=== PATIENT | female | born 1930 | race Caucasian/White ===

== ENCOUNTER → 2016-08-01 | Outpatient (CLI) | payer BC ==
[~2016-08-01] MED LIST: ASPEC81 PO; DYZ PO; EYE DROPS; SYN50 PO
[2016-08-01 17:39] LABS: ALB/GLOB RATIO 1.2 (0.9-2); ALKALINE PHOSPHATASE 92 U/L (45-117); BLOOD UREA NITROGEN 17 mg/dl (7-18); BUN/CREATININE RATIO 20.1 (10-20); CALCIUM 9.3 mg/dl (8.5-10.1); CARBON DIOXIDE 29 mmol/L (21-32); CHLORIDE 104 mmol/L (98-107); CREATININE 0.86 mg/dl (0.60-1.20); GLUCOSE 90 mg/dl (70-99); MAGNESIUM 2.1 mg/dl (1.8-2.4); POTASSIUM 3.6 mmol/L (3.5-5.1); SODIUM 143 mmol/L (136-145)
[2016-08-01 17:44] LABS: ALT/SGPT 27 U/L (12-78); AST/SGOT 21 U/L (15-37); CHOLESTEROL 192 mg/dl (0-200); CHOLESTEROL/HDL RATIO 2.6; HDL CHOLESTEROL 75 mg/dl; LDL CHOLESTEROL CALCULATED 97 mg/dl; THYROID STIMULATING HORMONE 0.694 uIu/ml (0.300-4.500); TRIGLYCERIDES 99 mg/dl (0-150); VERY LOW DENSITY LIPOPROT CALC 20 mg/dl
== END | disposition home or self-care (01) ==
LOC: C.LAB1850 11:44
PROVIDERS: ATTEND Internal Medicine
DX: E83.42 Hypomagnesemia (principal); E78.5 Hyperlipidemia, unspecified; I50.9 Heart failure, unspecified; E03.9 Hypothyroidism, unspecified

== ENCOUNTER → 2016-12-12 | Outpatient (CLI) | payer BC ==
--- NOTE | 2016-12-12 14:07 | MAMMOGRAPHY REPORT ---
BILATERAL DIGITAL SCREENING MAMMOGRAM WITH CAD: 12/12/2016 CLINICAL HISTORY: Routine screening. Patient has no complaints. TECHNIQUE: Current study was also evaluated with a Computer Aided Detection (CAD) system. Bilatera l CC and MLO views were obtained. COMPARISON: Comparison is made to exams dated: 12/12/2015 mammogram, 12/09/2014 mammogram, 12/08/2013 mammogram, 12/07/2012 mammogram, 12/05/2011 mammogram, and 11/29/2010 mammogram - [facility]. BREAST COMPOSITION: There are scattered areas of fibroglandular density in both breasts. FINDINGS: No suspicious masses, calcifications, or areas of architectural distortion are noted in e ither breast. There has been no significant interval change compared to prior exams. Scattered bilat eral benign-appearing calcifications are not significantly changed. IMPRESSION: ACR BI-RADS CATEGORY 2: BENIGN There is no mammographic evidence of malignancy. A 1 year screening mammogram is recommended. The p atient will receive written notification of the results. Approximately 10% of breast cancers are not detected with mammography. A negative mammographic repor t should not delay biopsy if a clinically suggestive mass is present. Blanche Licona M.D. /:12/12/2016 12:34:14 Linen Checker: Ibeth MARKS(R)(M), [facility] letter sent: Normal 1/2 BI-RADS Code: ACR BI-RADS Category 2: Benign
== END | disposition home or self-care (01) ==
LOC: C.MAMM 09:39
PROVIDERS: ATTEND Internal Medicine
DX: Z12.31 Encounter for screening mammogram for malignant neoplasm of breast (principal)

== ENCOUNTER → 2017-01-30 | Outpatient (CLI) | payer BC ==
[2017-01-30 12:22] LABS: BASO % 0.6 %; BASO ABS # 0.04 K/uL (0-0.2); COMPLETE YES; EOS % 4.1 %; HEMATOCRIT 37.2 % (37-47); IG% 0.2 %; LYMPH % 30.2 %; MEAN CORPUSCULAR HEMOGLOBIN 29.6 pg (25-34); MEAN CORPUSCULAR HGB CONC 32.5 g/dl (32-36); NEUT % 53.9 %; PLATELET COUNT 280 K/uL (130-400); RED BLOOD COUNT 4.09 M/uL (4.2-5.4); WHITE BLOOD COUNT 6.62 K/uL (4.8-10.8)
[2017-01-30 12:43] LABS: ALT/SGPT 28 U/L (12-78); BLOOD UREA NITROGEN 22 mg/dl (7-18); BUN/CREATININE RATIO 27.4 (10-20); CALCIUM 9.2 mg/dl (8.5-10.1); CARBON DIOXIDE 29 mmol/L (21-32); CHLORIDE 108 mmol/L (98-107); CREATININE 0.79 mg/dl (0.60-1.20); GLUCOSE 91 mg/dl (70-99); SODIUM 144 mmol/L (136-145)
[2017-01-30 13:04] LABS: AST/SGOT 19 U/L (15-37); CHOLESTEROL 185 mg/dl (0-200); CHOLESTEROL/HDL RATIO 2.4; HDL CHOLESTEROL 78 mg/dl; LDL CHOLESTEROL CALCULATED 92 mg/dl; TRIGLYCERIDES 76 mg/dl (0-150); VERY LOW DENSITY LIPOPROT CALC 15 mg/dl
== END | disposition home or self-care (01) ==
LOC: C.LAB1850 10:04
PROVIDERS: ATTEND Internal Medicine
DX: I71.01 Dissection of thoracic aorta (principal); E78.5 Hyperlipidemia, unspecified; E03.9 Hypothyroidism, unspecified

== ENCOUNTER → 2017-06-20 | Outpatient (CLI) | payer BC ==
[2017-06-20 10:58] LABS: BLOOD UREA NITROGEN 18 mg/dl (7-18); BUN/CREATININE RATIO 18.6 (10-20); CREATININE 0.94 mg/dl (0.60-1.20)
== END | disposition home or self-care (01) ==
LOC: C.LAB1850 09:51
PROVIDERS: ATTEND Internal Medicine Interventional Cardiology
DX: E55.9 Vitamin D deficiency, unspecified (principal); I77.810 Thoracic aortic ectasia

== ENCOUNTER → 2017-06-24 | Outpatient (CLI) | payer BC ==
[~2017-06-24] MED LIST changes: +OPTIRAY 320 IV PRN
--- NOTE | 2017-06-24 13:16 | DIAGNOSTIC IMAGING REPORT ---
CT ANGIOGRAPHY OF THE CHEST CLINICAL HISTORY: Ascending aorta dilatation. COMPARISON STUDY: Chest CT April 29, 2016 and CTA of the chest September 17, 2011. TECHNIQUE: Helical axial images of the chest were obtained during arterial phase following intravenous injection of 94 cc of Optiray 320 IV. Sagittal and coronal reconstructions were viewed as well as maximal intensity projections on an independent 3-D workstation. FINDINGS: Moderate cardiomegaly is noted. There is no pericardial effusion. A mildly enlarged hypodense right paratracheal lymph node measuring 1.2 cm in short axis diameter is unchanged since exam of May 22, 2015. This is likely benign. Contrast mixing artifact is noted within the aortic arch and descending thoracic aorta. No thoracic aortic dissection is present. Aneurysmal dilatation of the ascending aorta, measuring 4.6 cm at the level of the main pulmonary artery is unchanged. Caliber of the level of the sinuses of Valsalva is normal. There is minimal dilatation of the aortic arch which is unchanged. There is no pneumothorax or pleural effusion. There is no consolidation to suggest pneumonia. A 6 mm right lower lobe nodule shown image 149 of [address] of June 09, 2010. This is benign given stability. Linear opacities reflect atelectasis. Bony thorax is unremarkable. 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 IMPRESSION: 1. Stable aneurysmal dilatation of the ascending aorta, measuring 4.6 cm at the level the main pulmonary artery, since CT of April 29, 2016. No thoracic aortic dissection. Contrast mixing artifact within the aortic arch and descending thoracic aorta. 2. No acute intrathoracic findings. 3. 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 Electronically signed by: Hal Odonnell M.D. 06/24/2017 1:15 PM Dictated Date/Time: 06/24/2017 10:07 AM
== END | disposition home or self-care (01) ==
LOC: C.CTS 09:08
PROVIDERS: ATTEND Internal Medicine Interventional Cardiology
DX: I77.810 Thoracic aortic ectasia (principal)

== ENCOUNTER → 2017-07-30 | Outpatient (CLI) | payer BC ==
[~2017-07-30] MED LIST changes: -OPTIRAY 320 IV PRN
[2017-07-30 12:14] LABS: BASO % 0.6 %; BASO ABS # 0.04 K/uL (0-0.2); EOS % 4.9 %; EOS ABS # 0.33 K/uL (0-0.5); HEMOGLOBIN 11.2 g/dL (12.0-16.0); IG# 0.02 K/uL (0.00-0.02); LYMPH % 24.7 %; LYMPH ABS # 1.67 K/uL (1.2-3.4); MEAN CELL VOLUME 92.1 fL (80-100); MEAN CORPUSCULAR HEMOGLOBIN 29.5 pg (25-34); MEAN PLATELET VOLUME 9.2 fL (7.4-10.4); MONO % 7.5 %; MONO ABS # 0.51 K/uL (0.11-0.59); PLATELET COUNT 261 K/uL (130-400); RED CELL DISTRIBUTION WIDTH CV 14.2 % (11.5-14.5); RED CELL DISTRIBUTION WIDTH SD 47.9 fL (36.4-46.3); WHITE BLOOD COUNT 6.77 K/uL (4.8-10.8)
[2017-07-30 12:49] LABS: ALT/SGPT 28 U/L (12-78); AST/SGOT 18 U/L (15-37); BLOOD UREA NITROGEN 15 mg/dl (7-18); CALCIUM 9.2 mg/dl (8.5-10.1); CARBON DIOXIDE 29 mmol/L (21-32); CHOLESTEROL 155 mg/dl (0-200); CREATININE 0.84 mg/dl (0.60-1.20); GLUCOSE 89 mg/dl (70-99); POTASSIUM 4.1 mmol/L (3.5-5.1); SODIUM 140 mmol/L (136-145)
[2017-07-30 12:59] LABS: LDL CHOLESTEROL CALCULATED 74 mg/dl
[2017-07-30 13:38] LABS: HEP C IGG 13 YRS+OLDER_RFLX NEG (NEG)
[2017-07-31 04:51] LABS: HEPATITIS A IGM TC 51813E NON-REACTIVE (NON-REACTIVE); HEPATITIS B CORE IGM TC51854R NON-REACTIVE (NON-REACTIVE)
[2017-08-01 08:42] LABS: QUANTIF MITOGEN-NIL 6.54 IU/ML; QUANTIFERON NEGATIVE (NEGATIVE); QUANTIFERON NIL 0.03 IU/ML
== END | disposition home or self-care (01) ==
LOC: C.LAB1850 11:14
PROVIDERS: ATTEND Dermatology
DX: E03.9 Hypothyroidism, unspecified (principal); I71.01 Dissection of thoracic aorta; E78.5 Hyperlipidemia, unspecified; L40.9 Psoriasis, unspecified

== ENCOUNTER → 2017-08-28 | Outpatient (CLI) | payer BC ==
--- NOTE | 2017-08-28 13:27 | DIAGNOSTIC IMAGING REPORT ---
CHEST 2 VIEWS ROUTINE CLINICAL HISTORY: R06.02 Shortness of [id number] COMPARISON STUDY: 06/09/2010 FINDINGS: There is dilatation of the ascending thoracic aorta.[ The heart is enlarged. There is no failure. There is no lobar consolidation. There is minimal blunting of the costophrenic angle suggesting trace pleural effusions. There are linear scar/atelectatic changes within left midlung zone. IMPRESSION: 1. Dilatation of the ascending thoracic aorta 2. Cardiomegaly 3. Trace pleural effusions 4. No evidence of focal pulmonary consolidation Electronically signed by: Eloy Ashley M.D. 08/28/2017 1:26 PM Dictated Date/Time: 08/28/2017 1:25 PM
== END | disposition home or self-care (01) ==
LOC: C.LAB1850 13:03
PROVIDERS: ATTEND Internal Medicine
DX: R06.02 Shortness of breath (principal); I77.810 Thoracic aortic ectasia; I51.7 Cardiomegaly

== ENCOUNTER 2017-09-17 18:44 | Inpatient (IN) | payer BC, OTHER ==
[~2017-09-17] VITALS: Ht 160 cm; Wt 64.3 kg
[2017-09-17] MEDS ORDERED: SODIUM CHLORIDE 0.9% 1000ML 1,000 ML IV STA (21:44)
[2017-09-17 21:48] LABS: BASO % 0.2 %; BASO ABS # 0.02 K/uL (0-0.2); EOS % 4.6 %; EOS ABS # 0.38 K/uL (0-0.5); HEMATOCRIT 35.3 % (37-47); HEMOGLOBIN 10.8 g/dL (12.0-16.0); IG# 0.02 K/uL (0.00-0.02); LYMPH ABS # 2.16 K/uL (1.2-3.4); MEAN CELL VOLUME 90.3 fL (80-100); MEAN CORPUSCULAR HEMOGLOBIN 27.6 pg (25-34); MEAN CORPUSCULAR HGB CONC 30.6 g/dl (32-36); MEAN PLATELET VOLUME 8.8 fL (7.4-10.4); MONO % 7.8 %; MONO ABS # 0.65 K/uL (0.11-0.59); NEUT % 61.2 %; NEUT ABS # 5.07 K/uL (1.4-6.5); PLATELET COUNT 279 K/uL (130-400)
--- NOTE | 2017-09-17 21:49 | DIAGNOSTIC IMAGING REPORT ---
CHEST ONE VIEW PORTABLE CLINICAL HISTORY: Respiratory distress. COMPARISON STUDY: August 28, 2017 FINDINGS: The heart remains enlarged. There is aortic tortuosity/ectasia. There is pulmonary emphysema. There is elevation of the interstitium suggesting mild pulmonary vascular congestion. There is no lobar consolidation[ IMPRESSION: Elevation of the interstitium, likely secondary to mild congestive failure/fluid overload. No evidence of focal pulmonary consolidation. Electronically signed by: Eloy Ashley M.D. 09/17/2017 9:48 PM Dictated Date/Time: 09/17/2017 9:47 PM
[2017-09-17 21:53] LABS: PTT PATIENT 24.9 SECONDS (21.0-31.0)
[2017-09-17 22:03] LABS: ALBUMIN 3.8 gm/dl (3.4-5.0); CALCIUM 8.9 mg/dl (8.5-10.1); CREATININE 0.82 mg/dl (0.60-1.20)
--- NOTE | 2017-09-17 22:56 | DIAGNOSTIC IMAGING REPORT ---
CT ANGIOGRAM OF THE CHEST CLINICAL HISTORY: Respiratory distress COMPARISON STUDY: 06/24/2017 TECHNIQUE: Following the IV administration of 93 mL of Optiray-320, CT angiogram of the thorax was performed from the thoracic inlet to the lung bases utilizing the pulmonary embolus protocol. Images are reviewed in the axial, sagittal, and coronal planes. IV contrast was administered without complication. MIP imaging was performed. A dose lowering technique was utilized adhering to the principles of ALARA. CT DOSE: 217.52 mGy.cm FINDINGS: Mediastinal and hilar lymph nodes are at the upper limits of normal in size There is dilatation of the ascending thoracic aorta which measures 5 cm. There is ectasia of the proximal descending thoracic aorta. The heart is enlarged with coronary artery calcifications There were no pulmonary artery filling defects to indicate acute pulmonary embolism. There are small bilateral pleural effusions There is interlobular septal edema. There is a stable 6 mm right lower lobe pulmonary nodule. There is no there is a 22 mm left apical opacity, likely representing focal edema. There are lingular atelectatic changes. There is a calcified 14 mm splenic artery aneurysm IMPRESSION: 1. Ascending thoracic aortic aneurysm measuring 5 cm 2. No evidence of acute pulmonary embolism 3. Interstitial pulmonary edema. Small bilateral pleural effusions 4. Stable 6 mm right lower lobe pulmonary nodule 5. 22 mm left apical opacity. Focal edema is favored over a pneumonitis. Electronically signed by: Eloy Ashley M.D. 09/17/2017 10:55 PM Dictated Date/Time: 09/17/2017 10:50 PM
[2017-09-17] MEDS ORDERED: OPTIRAY 320 IV PRN (23:00)
[2017-09-17] MEDS ORDERED: ALBUT/IPRATROP 3MG/0.5MG NEB 3 ML VIAL INH STA (23:36)
[2017-09-17] MEDS ORDERED: FUROSEMIDE 40 MG/4 ML VIAL IV STA (23:36)
[2017-09-18] VITALS (20 sets, daily range): BP systolic 130–155; BP diastolic 77–100; PULSE 76–96; TEMP 36.3–36.8; O2SAT 92–100; Ht 160 cm; Wt 64.3 kg
[2017-09-18] MEDS ORDERED: MAGNESIUM HYDROXIDE SUSP 30 ML UDC PO PRN (00:30)
[2017-09-18] MEDS ORDERED: ACETAMINOPHEN 325 MG TAB PO PRN ×2 (00:30→16:30)
[2017-09-18] MEDS ORDERED: POLYETHYLENE (MIRALAX) 17 GM PACK PO PRN (00:30)
[2017-09-18] MEDS ORDERED: ONDANSETRON INJ 2 MG/ML 2 ML VIAL IV PRN (00:30)
[2017-09-18] MEDS ORDERED: ALUMINUM/MAGNESIUM/SIMETH (MAALOX MAX) 30 ML UDC PO PRN (00:30)
[2017-09-18 00:43] LABS: INFLUENZA B ANTIGEN Neg for Influ B (NEG)
[2017-09-18] MEDS ORDERED: FOLI1TAB8 PO (00:54)
[2017-09-18] MEDS ORDERED: LABE1TAB28 PO (00:54)
[2017-09-18] MEDS ORDERED: ASPI1TAB48 PO (00:54)
[2017-09-18] MEDS ORDERED: ATOR-24 PO (00:54)
[2017-09-18] MEDS ORDERED: FLUO0.0121 (00:56)
[2017-09-18] MEDS ORDERED: POTASSIUM CHLORIDE 10 MEQ TABCR PO STA (00:56)
[2017-09-18] MEDS ORDERED: DSWCR TOP (00:56)
[2017-09-18] MEDS ORDERED: LEVO100T7 PO ×2 (00:57)
[2017-09-18] MEDS ORDERED: ADAL40KI INJ (00:57)
[2017-09-18] MEDS ORDERED: SYMIN/8045 INH (00:58)
[2017-09-18] MEDS ORDERED: FLUO0.0566 TOP (00:59)
[2017-09-18] MEDS ORDERED: CHOL20007 PO (01:00)
[2017-09-18] MEDS ORDERED: TRIA37.5 PO (01:00)
[2017-09-18] MEDS ORDERED: TRMO180 TOP (01:02)
--- NOTE | 2017-09-18 01:07 | EMERGENCY ROOM VISIT NOTE ---
History Report prepared by Tray: La Mccarthy Under the Supervision of: Dr. Clark Alexander D.O. First contact with patient: 20:46 Chief Complaint: RESPIRATORY PROBLEMS Stated Complaint: BREATHING PROBLEMS- REFERRED Nursing Triage Summary: Patient reports that she's having a hard time breathing, "I sit up in the recliner, I have a cough but it's dry. Two weeks ago they gave me prednisone and an antibiotic" Reports that her symptoms are getting worse, concerned for fluid build up. pt reports that she gets SOB with bending and activity. pt has HTN which she takes Labatolol for. did not take her night dose of 400mg tonight. History of Present Illness The patient is an 86 year old female who presents to the Emergency Room with complaints of persistent SOB starting 1 month ago. She has noticed the SOB at night when she lies down to sleep. She has been sleeping in a recliner. Recently she has noticed she is SOB with exertion. She also has had a dry cough for the past month. She denies any chest pain, abdominal pain, nausea, vomiting , leg swelling, or urinary symptoms. Shortness of breath has become fairly persistent. She is followed with her PCP on multiple occasions. She has had a chest x-ray 2 weeks ago. She is also been on steroids. She notes she has also taken an antibiotic without improvement as well. Source of History: patient Onset: 1 month ago Position: other (global) Quality: other (SOB) Timing: other (persistent) Modifying Factors (Worsening): exertion, other (lying flat) Associated Symptoms: + cough, No chest pain, No nausea, No vomiting, No abdominal pain, No urinary symptoms Review of Systems See HPI for pertinent positives & negatives. A total of 10 systems reviewed and were otherwise negative. Past Medical & Surgical Medical Problems: (1) CHF (congestive heart failure) (2) Hypertension Family History Cancer Heart disease Hypertension Social History Smoking Status: Never Smoker Marital Status: Occupation Status: retired Current/Historical Medications Scheduled Adalimumab (Humira Pen), 40 MG INJ EVERY OTHER WEEK Aspirin (Aspirin Low Dose), 1 TAB PO DAILY Atorvastatin (Lipitor), 40 MG PO DAILY Budesonide/Formoterol Fumarate (Symbicort 80/4.5 Inhaler), 2 PUFFS INH BID Cholecalciferol (Vitamin D3), 1 TAB PO BID Desonide 0.05% ([place] 0.05%), 1 APPLN TOP BID Fluocinonide (Fluocinonide), 1 APPLN TOP BID Folic Acid (Folvite), 1 MG PO DAILY Labetalol (Normodyne), 2 TABS PO BID Levothyroxine Sodium (Levothyroxine Sodium), 0.5 TAB PO WK Levothyroxine Sodium (Levothyroxine Sodium), 1 TAB PO 6XWK Triamcinolone Acet (Triamcinolone Acetonide), 1 APPLN TOP BID Scheduled PRN Triamterene/Hctz (Dyazide 37.5MG/25MG), 1 CAP PO DAILY PRN for PRN Miscellaneous Medications Fluocinolone Acetonide ([place]/Fs Scalp), 1 APPLN Allergies Coded Allergies: ALLERGY2 (Verified Allergy, Unknown, 09/18/17) Flu Virus Vaccine (Verified Allergy, Unknown, UNKNOWN, 09/18/17) Uncoded Allergies: CIGARETTE SMOKE POLLEN (Allergy, Unknown, 09/02/02) PNEUMONVAX (Allergy, Unknown, 01/22/03) TETANUS (Allergy, Unknown, 09/02/02) Physical Exam Vital Signs Date Time Temp Pulse Resp B/P (MAP) Pulse Ox O2 Delivery O2 Flow Rate FiO2 09/18/17 00:09 115 09/17/17 23:40 94 Nasal Cannula 2.0 09/17/17 23:40 94 Nasal Cannula 2.0 09/17/17 23:39 118 20 153/102 88 Room Air 09/17/17 23:01 141/91 09/17/17 22:30 93 17 92 Room Air 09/17/17 22:01 147/103 09/17/17 21:30 99 20 95 Room Air 09/17/17 21:20 98 21 155/110 95 Room Air 09/17/17 20:59 99 09/17/17 20:49 96 Room Air 09/17/17 20:47 95 Room Air 09/17/17 20:45 96 15 165/111 96 Room Air 09/17/17 18:54 36.7 98 17 143/90 97 Room Air Physical Exam GENERAL: Sitting up in bed, alert, well appearing, well nourished, no distress, non-toxic EYE EXAM: normal conjunctiva. OROPHARYNX: no exudate, no erythema, lips, buccal mucosa, and tongue normal and mucous membranes are moist NECK: supple, no nuchal rigidity, no adenopathy, non-tender LUNGS: Coarse at bilateral bases. Normal chest wall mechanics HEART: no murmurs, S1 normal and S2 normal ABDOMEN: abdomen soft, non-tender, normo-active bowel sounds, no masses, no rebound or guarding. BACK: Back is symmetrical on inspection and there is no deformity, no midline tenderness, no CVA tenderness. SKIN: no rashes and no bruising UPPER EXTREMITIES: upper extremities are grossly normal. LOWER EXTREMITIES: No pitting edema. NEURO EXAM: Normal sensorium, cranial nerves II-XII grossly intact, normal speech, no gross weakness of arms, no gross weakness of legs. Medical Decision & Procedures ER Provider Diagnostic Interpretation: Xray results as stated below per my and the radiologist's interpretation. Radiology results as stated below per my review and the radiologist's interpretation: CHEST ONE VIEW PORTABLE CLINICAL HISTORY: Respiratory distress. COMPARISON STUDY: August 28, 2017 FINDINGS: The heart remains enlarged. There is aortic tortuosity/ectasia. There is pulmonary emphysema. There is elevation of the interstitium suggesting mild pulmonary vascular congestion. There is no lobar consolidation[ IMPRESSION: Elevation of the interstitium, likely secondary to mild congestive failure/fluid overload. No evidence of focal pulmonary consolidation. Electronically signed by: Eloy Ashley M.D. 09/17/2017 9:48 PM Dictated Date/Time: 09/17/2017 9:[address] ANGIOGRAM OF THE CHEST CLINICAL HISTORY: Respiratory distress COMPARISON STUDY: 06/24/2017 TECHNIQUE: Following the IV administration of 93 mL of Optiray-320, CT angiogram of the thorax was performed from the thoracic inlet to the lung bases utilizing the pulmonary embolus protocol. Images are reviewed in the axial, sagittal, and coronal planes. IV contrast was administered without complication. MIP imaging was performed. A dose lowering technique was utilized adhering to the principles of ALARA. CT DOSE: 217.52 mGy.cm FINDINGS: Mediastinal and hilar lymph nodes are at the upper limits of normal in size There is dilatation of the ascending thoracic aorta which measures 5 cm. There is ectasia of the proximal descending thoracic aorta. The heart is enlarged with coronary artery calcifications There were no pulmonary artery filling defects to indicate acute pulmonary embolism. There are small bilateral pleural effusions There is interlobular septal edema. There is a stable 6 mm right lower lobe pulmonary nodule. There is no there is a 22 mm left apical opacity, likely representing focal edema. There are lingular atelectatic changes. There is a calcified 14 mm splenic artery aneurysm IMPRESSION: 1. Ascending thoracic aortic aneurysm measuring 5 cm 2. No evidence of acute pulmonary embolism 3. Interstitial pulmonary edema. Small bilateral pleural effusions 4. Stable 6 mm right lower lobe pulmonary nodule 5. 22 mm left apical opacity. Focal edema is favored over a pneumonitis. Electronically signed by: Eloy Ashley M.D. 09/17/2017 10:55 PM Dictated Date/Time: 09/17/2017 10:50 PM Laboratory Results 09/17/17 21:10 Red Blood Count 3.91, Mean Corpuscular Volume 90.3, Mean Corpuscular Hemoglobin 27.6, Mean Corpuscular Hemoglobin Concent 30.6, Mean Platelet Volume 8.8, Neutrophils (%) (Auto) 61.2, Lymphocytes (%) (Auto) 26.0, Monocytes (%) (Auto) 7.8, Eosinophils (%) (Auto) 4.6, Basophils (%) (Auto) 0.2, Neutrophils # (Auto) 5.07, Lymphocytes # (Auto) 2.16, Monocytes # (Auto) 0.65, Eosinophils # (Auto) 0.38, Basophils # (Auto) 0.02 09/17/17 21:10 Test 09/17/17 21:10 09/17/17 21:20 09/17/17 23:55 White Blood Count 8.30 K/uL (4.8-10.8) Red Blood Count 3.91 M/uL (4.2-5.4) Hemoglobin 10.8 g/dL (12.0-16.0) Hematocrit 35.3 % (37-47) Mean Corpuscular Volume 90.3 fL (80-100) Mean Corpuscular Hemoglobin 27.6 pg (25-34) Mean Corpuscular Hemoglobin Concent 30.6 g/dl (32-36) Platelet Count 279 K/uL (130-400) Mean Platelet Volume 8.8 fL (7.4-10.4) Neutrophils (%) (Auto) 61.2 % Lymphocytes (%) (Auto) 26.0 % Monocytes (%) (Auto) 7.8 % Eosinophils (%) (Auto) 4.6 % Basophils (%) (Auto) 0.2 % Neutrophils # (Auto) 5.07 K/uL (1.4-6.5) Lymphocytes # (Auto) 2.16 K/uL (1.2-3.4) Monocytes # (Auto) 0.65 K/uL (0.11-0.59) Eosinophils # (Auto) 0.38 K/uL (0-0.5) Basophils # (Auto) 0.02 K/uL (0-0.2) RDW Standard Deviation 50.0 fL (36.4-46.3) RDW Coefficient of Variation 15.0 % (11.5-14.5) Immature Granulocyte % (Auto) 0.2 % Immature Granulocyte # (Auto) 0.02 K/uL (0.00-0.02) Prothrombin Time 10.5 SECONDS (9.0-12.0) Prothromb Time International Ratio 1.0 (0.9-1.1) Activated Partial Thromboplast Time 24.9 SECONDS (21.0-31.0) Partial Thromboplastin Ratio 1.0 D-Dimer 640 ug/L FEU (0-500) Anion Gap 6.0 mmol/L (3-11) Est Creatinine Clear Calc Drug Dose 44.0 ml/min Estimated GFR () 76.2 Estimated GFR (Non- 65.7 BUN/Creatinine Ratio 21.1 (10-20) Calcium Level 8.9 mg/dl (8.5-10.1) Total Bilirubin 2.3 mg/dl (0.2-1) Aspartate Amino Transf (AST/SGOT) 38 U/L (15-37) Alanine Aminotransferase (ALT/SGPT) 64 U/L (12-78) Alkaline Phosphatase 103 U/L (45-117) Troponin I 0.019 ng/ml (0-0.045) Pro-B-Type Natriuretic Peptide 4752 pg/ml (0-1800) Total Protein 7.0 gm/dl (6.4-8.2) Albumin 3.8 gm/dl (3.4-5.0) Globulin 3.2 gm/dl (2.5-4.0) Albumin/Globulin Ratio 1.2 (0.9-2) Urine Color YELLOW Urine Appearance CLEAR (CLEAR) Urine pH 5.0 (4.5-7.5) Urine Specific [place] 1.013 (1.000-1.030) Urine Protein NEG (NEG) Urine Glucose (UA) NEG (NEG) Urine Ketones NEG (NEG) Urine Occult Blood NEG (NEG) Urine Nitrite NEG (NEG) Urine Bilirubin NEG (NEG) Urine Urobilinogen NEG (NEG) Urine Leukocyte Esterase SMALL (NEG) Urine WBC (Auto) 1-5 /hpf (0-5) Urine RBC (Auto) 0-4 /hpf (0-4) Urine Hyaline Casts (Auto) 1-5 /lpf (0-5) Urine Epithelial Cells (Auto) 5-10 /lpf (0-5) Urine Bacteria (Auto) NEG (NEG) Influenza Type A Antigen Neg for Influ A (NEG) Influenza Type B Antigen Neg for Influ B (NEG) Laboratory results per my review. Medications Administered Medications (Trade) Dose Ordered Sig/Tae Route Start Time Stop Time Status Last Admin Dose Admin Sodium Chloride 1,000 ml @ 999 mls/hr Q1H1M STAT IV 09/17/17 21:44 09/17/17 22:44 DC 09/17/17 22:25 999 MLS/HR Furosemide (Lasix Inj) 40 mg NOW STAT IV 09/17/17 23:36 09/17/17 23:37 DC 09/17/17 23:56 40 MG Albuterol/ Ipratropium (Duoneb) 3 ml NOW STAT INH 09/17/17 23:36 09/17/17 23:37 DC 09/17/17 23:56 3 ML ECG Per My Interpretation Indication: SOB/dyspnea Rate (beats per minute): 101 Rhythm: sinus tachycardia Findings: LBBB, ST depression (Lateral, High Lateral), left axis deviation Comparison ECG Date: 09-Jun-2010 Change: ST depression slightly worse in high lateral leads, otherwise no significant change. ED Course ED COURSE: Vital signs were reviewed and showed hypertension. The patients medical record was reviewed The above diagnostic studies were performed and reviewed. ED treatments and interventions as stated above. 2104: The patient was evaluated in room B2. A complete history and physical examination was performed. 2143: NSS 1000 ml @ 999 mls/hr IV. 3: Upon reevaluation, the patient is hypoxic. I discussed my findings with the patient and she understands and agrees with the treatment plan. Based on the patients age, coexisting illnesses, exam and lab findings the decision to treat as an inpatient was made. The patient remained stable while under my care. The patient will be evaluated for further management. 2336: Duoneb 3 ml INH, Lasix Inj 40 mg IV. 2340: Dr. Cabrera [facility] hospitalist is aware of the patient. Medical Decision Differential diagnoses includes but is not limited to pneumonia, bronchitis, COPD/Asthma exacerbation, pneumothorax, pulmonary embolism, congestive heart failure, acute coronary syndrome Patient is an 86-year-old female who presents to ER referred in by PCP for shortness of breath which has been worsening over the past month. CBC all BMP, LFTs and troponin were negative. BNP was elevated at 5000. T bili was slightly elevated at 2.3. No abdominal pain. Chest x-ray shows questionable pleural effusions. D-dimer was elevated and constantly CT PE was performed. This shows a known aneurysm in combination with CHF and bilateral pleural effusions. Influenza was negative. Uncertain initially upon presentation as I did give her bolus normal saline. On CT resulted I gave her just Lasix. EKG is fairly unchanged from previous. She has no chest pain. Asymptomatic with rest. Discussed with internal medicine patient will be admitted for CHF. Medication Reconcilliation Current Medication List: was personally reviewed by me Blood Pressure Screening Patient's blood pressure: Elevated blood pressure Blood pressure disposition: Elevated BP felt to be situational Consults Time Called: 2335 Consulting Physician: Dr. Cabrera [facility] hospitalist He is aware of the patient. Impression Primary Impression: CHF (congestive heart failure) Additional Impression: Hypoxia Scribe Attestation The scribe's documentation has been prepared under my direction and personally reviewed by me in its entirety. I confirm that the note above accurately reflects all work, treatment, procedures, and medical decision making performed by me. Departure Information Dispostion Being Evaluated By Hospitalist Referrals ,Aleksandar Giordano M.D. (PCP) Patient Instructions My [facility] Problem Qualifiers Primary Impression: CHF (congestive heart failure) Heart failure type: unspecified Heart failure chronicity: acute Qualified Codes: I50.9 - Heart failure, unspecified
--- NOTE | 2017-09-18 01:24 | History and Physical ---
History & Physical Date & Time of Service: Sep 18, 2017 at 00:59 Chief Complaint: Breathing Problems- Referred Primary Care Physician: Aleksandar Coker M.D. History of Present Illness Source: patient, hospital records 86 y/o F Hx HTN, thoracic aortic aneurysm, psoriasis, LBBB, hypothyroidism. Pt states that she has had a dry cough and exertional dyspnea for approximately 1 month. She states she has exceptional difficulty ascending stairs. She was provided with breathing treatments and a steroid taper which she completed but did not lead to sustained improvement. Her primary MD obtained a CXR earlier in the day and then instructed her to attend the hospital. Initial imaging is consistent with new onset of CHF, She denies CP, denies lower extremity edema, denies fevers. Past Medical/Surgical History 1) HTN 2) Hypothyroidism 3) thoracic ascending aortic aneurysm 4) Psoriasis 5) LBBB - dates to 2007 Family History Cancer Heart disease Hypertension Mother at 96 - may have had a CVA, Father at 65 due to NH - was a smoker - Paternal grandmother lived to be 100 Social History Does not smoke - occasional drink - maintains full independence Smoking Status: Never Smoker Marital Status: Housing status: lives with family Allergies Coded Allergies: ALLERGY2 (Verified Allergy, Unknown, 09/18/17) Flu Virus Vaccine (Verified Allergy, Unknown, UNKNOWN, 09/18/17) Uncoded Allergies: CIGARETTE SMOKE POLLEN (Allergy, Unknown, 09/02/02) PNEUMONVAX (Allergy, Unknown, 01/22/03) TETANUS (Allergy, Unknown, 09/02/02) Home Medications Scheduled Adalimumab (Humira Pen), 40 MG INJ EVERY OTHER WEEK Aspirin (Aspirin Low Dose), 1 TAB PO DAILY Atorvastatin (Lipitor), 40 MG PO DAILY Budesonide/Formoterol Fumarate (Symbicort 80/4.5 Inhaler), 2 PUFFS INH BID Cholecalciferol (Vitamin D3), 1 TAB PO BID Desonide 0.05% (Desowen 0.05%), 1 APPLN TOP BID Fluocinonide (Fluocinonide), 1 APPLN TOP BID Folic Acid (Folvite), 1 MG PO DAILY Labetalol (Normodyne), 2 TABS PO BID Levothyroxine Sodium (Levothyroxine Sodium), 0.5 TAB PO WK Levothyroxine Sodium (Levothyroxine Sodium), 1 TAB PO 6XWK Triamcinolone Acet (Triamcinolone Acetonide), 1 APPLN TOP BID Scheduled PRN Triamterene/Hctz (Dyazide 37.5MG/25MG), 1 CAP PO DAILY PRN for PRN Miscellaneous Medications Fluocinolone Acetonide ([place]-Smoothe/Fs Scalp), 1 APPLN Review of Systems Constitutional: No fever, No chills, No sweats Eyes: No worsening of vision ENT: No hearing loss, No unusual epistaxis, No nasal symptoms Respiratory: + cough, + shortness of breath, + dyspnea on exertion, No sputum, No wheezing Cardiovascular: + orthopnea, No chest pain, No PND Abdomen: No pain, No nausea, No vomiting Musculoskeletal: No joint pain Genitourinary - Female: No dysuria, No urinary frequency Neurologic: No memory loss, No paralysis Psychiatric: No depression symptoms Endocrine: No fatigue Hematologic / Lymphatic: No abnormal bleeding/bruising Integumentary: No rash Allergic / Immunologic: No environmental allergies Physical Exam Vital Signs Date Time Temp Pulse Resp B/P (MAP) Pulse Ox O2 Delivery O2 Flow Rate FiO2 09/18/17 00:09 115 09/17/17 23:40 94 Nasal Cannula 2.0 09/17/17 23:40 94 Nasal Cannula 2.0 09/17/17 23:39 118 20 153/102 88 Room Air 09/17/17 23:01 141/91 09/17/17 22:30 93 17 92 Room Air 09/17/17 22:01 147/103 09/17/17 21:30 99 20 95 Room Air 09/17/17 21:20 98 21 155/110 95 Room Air 09/17/17 20:59 99 09/17/17 20:49 96 Room Air 09/17/17 20:47 95 Room Air 09/17/17 20:45 96 15 165/111 96 Room Air 09/17/17 18:54 36.7 98 17 143/90 97 Room Air General Appearance: WD/WN, no apparent distress, + pertinent finding ([place], elderly female in no distress) Head: normocephalic Eyes: normal inspection ENT: normal ENT inspection, pharynx normal Neck: supple, + JVD Respiratory/Chest: chest non-tender, + pertinent finding (reduced air at bases) Cardiovascular: regular rate, rhythm, no edema, no gallop Abdomen/GI: normal bowel sounds, non tender, soft Back: normal inspection, no CVA tenderness Extremities/Musculoskelatal: normal inspection, no calf tenderness, normal capillary refill 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, no motor/sensory deficits, alert, oriented x 3 Skin: normal color, warm/dry, no rash Diagnostics Laboratory Results Results Past 24 Hours Test 09/17/17 21:10 09/17/17 21:20 09/17/17 23:55 Range/Units White Blood Count 8.30 4.8-10.8 K/uL Red Blood Count 3.91 4.2-5.4 M/uL Hemoglobin 10.8 12.0-16.0 g/dL Hematocrit 35.3 37-47 % Mean Corpuscular Volume 90.3 80-100 fL Mean Corpuscular Hemoglobin 27.6 25-34 pg Mean Corpuscular Hemoglobin Concent 30.6 32-36 g/dl Platelet Count 279 130-400 K/uL Mean Platelet Volume 8.8 7.4-10.4 fL Neutrophils (%) (Auto) 61.2 % Lymphocytes (%) (Auto) 26.0 % Monocytes (%) (Auto) 7.8 % Eosinophils (%) (Auto) 4.6 % Basophils (%) (Auto) 0.2 % Neutrophils # (Auto) 5.07 1.4-6.5 K/uL Lymphocytes # (Auto) 2.16 1.2-3.4 K/uL Monocytes # (Auto) 0.65 0.11-0.59 K/uL Eosinophils # (Auto) 0.38 0-0.5 K/uL Basophils # (Auto) 0.02 0-0.2 K/uL RDW Standard Deviation 50.0 36.4-46.3 fL RDW Coefficient of Variation 15.0 11.5-14.5 % Immature Granulocyte % (Auto) 0.2 % Immature Granulocyte # (Auto) 0.02 0.00-0.02 K/uL Prothrombin Time 10.5 9.0-12.0 SECONDS Prothromb Time International Ratio 1.0 0.9-1.1 Activated Partial Thromboplast Time 24.9 21.0-31.0 SECONDS Partial Thromboplastin Ratio 1.0 D-Dimer 640 0-500 ug/L FEU Sodium Level 140 136-145 mmol/L Potassium Level 4.0 3.5-5.1 mmol/L Chloride Level 108 98-107 mmol/L Carbon Dioxide Level 26 21-32 mmol/L Anion Gap 6.0 3-11 mmol/L Blood Urea Nitrogen 17 7-18 mg/dl Creatinine 0.82 0.60-1.20 mg/dl Est Creatinine Clear Calc Drug Dose 44.0 ml/min Estimated GFR () 76.2 Estimated GFR (Non- 65.7 BUN/Creatinine Ratio 21.1 10-20 Random Glucose 94 70-99 mg/dl Calcium Level 8.9 8.5-10.1 mg/dl Total Bilirubin 2.3 0.2-1 mg/dl Aspartate Amino Transf (AST/SGOT) 38 15-37 U/L Alanine Aminotransferase (ALT/SGPT) 64 12-78 U/L Alkaline Phosphatase 103 45-117 U/L Troponin I 0.019 0-0.045 ng/ml Pro-B-Type Natriuretic Peptide 4752 0-1800 pg/ml Total Protein 7.0 6.4-8.2 gm/dl Albumin 3.8 3.4-5.0 gm/dl Globulin 3.2 2.5-4.0 gm/dl Albumin/Globulin Ratio 1.2 0.9-2 Urine Color YELLOW Urine Appearance CLEAR CLEAR Urine pH 5.0 4.5-7.5 Urine Specific [place] 1.013 1.000-1.030 Urine Protein NEG NEG Urine Glucose (UA) NEG NEG Urine Ketones NEG NEG Urine Occult Blood NEG NEG Urine Nitrite NEG NEG Urine Bilirubin NEG NEG Urine Urobilinogen NEG NEG Urine Leukocyte Esterase SMALL NEG Urine WBC (Auto) 1-5 0-5 /hpf Urine RBC (Auto) 0-4 0-4 /hpf Urine Hyaline Casts (Auto) 1-5 0-5 /lpf Urine Epithelial Cells (Auto) 5-10 0-5 /lpf Urine Bacteria (Auto) NEG NEG Influenza Type A Antigen Neg for Influ A NEG Influenza Type B Antigen Neg for Influ B NEG Diagnostic Radiology CTA 1. Ascending thoracic aortic aneurysm measuring 5 cm 2. No evidence of acute pulmonary embolism 3. Interstitial pulmonary edema. Small bilateral pleural effusions 4. Stable 6 mm right lower lobe pulmonary nodule 5. 22 mm left apical opacity. Focal edema is favored over a pneumonitis. EKG LBBB - nondiagnostic Impression Assessment and Plan 86 y/o F Hx HTN, aortic aneurysm, psoriasis, LBBB, hypothyroidism. Pt states that she has had a dry cough and exertional dyspnea for approximately 1 month. She states she has exceptional difficulty ascending stairs. She was provided with breathing treatments and a steroid taper which she completed but did not lead to sustained improvement. Her primary MD obtained a CXR earlier in the day and then instructed her to attend the hospital. Initial imaging is consistent with new onset of CHF, She denies CP, denies lower extremity edema, denies fevers. 1) SOB - exertional dyspnea - likely new onset of CHF - etiology is not clear - no history of ischemic heart disease. She was taking Humira for an extended period until 06/06. We will diurese with Lasix - I/Os, daily weights requested and echo and cardiology consult are pending. She takes a B javon BID although Labetalol may not be optimal. We will provide a dose of Metoprolol currently as she is tachycardic. NTG ointment provided 2) HTN - Cont Labetalol pending cardio eval 3) Hypothyroidism - cont Synthroid 4) Aortic aneurysm - as above - will provide additional B javon - judging by size and location and the pt's genera good health, it may make sense to pursue intervention. Can f/u as outpt. 5) Anemia - normocytic - no evidence of blood loss - appears to be gradually worsening however. Will check iron profile and trend Hb - may contribute to her SOB. 6) Psoriasis is in remission and not currently treated Full code - Lovenox prophylaxis - total time for this admit including review of labs, meds, imaging, records, EKG - discussion with pt and ER attending - 38 min Resuscitation Status VTE Prophylaxis Will order VTE Prophylaxis: Yes
[2017-09-18] MEDS ORDERED: METOPROLOL TARTRATE 1 MG/ML VIAL IV STA ×2 (02:39→05:43)
[2017-09-18] MEDS ORDERED: NITROGLYCERIN 2% OINTMENT 30GM TUBE EXT ONE (03:00)
[2017-09-18 04:05] LABS: HEMATOCRIT 34.3 % (37-47); HEMOGLOBIN 10.8 g/dL (12.0-16.0); MEAN CELL VOLUME 89.3 fL (80-100); MEAN CORPUSCULAR HEMOGLOBIN 28.1 pg (25-34); MEAN CORPUSCULAR HGB CONC 31.5 g/dl (32-36); MEAN PLATELET VOLUME 8.6 fL (7.4-10.4); PLATELET COUNT 253 K/uL (130-400); RED CELL DISTRIBUTION WIDTH CV 15.1 % (11.5-14.5); RED CELL DISTRIBUTION WIDTH SD 49.1 fL (36.4-46.3); WHITE BLOOD COUNT 8.32 K/uL (4.8-10.8)
[2017-09-18 04:27] LABS: CALCIUM 8.4 mg/dl (8.5-10.1); CREATININE 0.81 mg/dl (0.60-1.20); POTASSIUM 3.4 mmol/L (3.5-5.1)
[2017-09-18] MEDS ORDERED: ENOXAPARIN 40 MG/0.4 ML SYR SQ ONE (05:45)
[2017-09-18] MEDS ORDERED: ENOXAPARIN 40 MG/0.4 ML SYR SC SCH (06:00)
[2017-09-18] MEDS ORDERED: ENOXAPARIN 60 MG/0.6 ML SYR SQ SCH (06:00)
[2017-09-18] MEDS ORDERED: NURSING VERBAL MED ORDER ONE (08:30)
[2017-09-18] MEDS ORDERED: ASPIRIN 81 MG ECTAB PO SCH (09:00)
[2017-09-18] MEDS ORDERED: ATORVASTATIN 40 MG TAB PO SCH (09:00)
[2017-09-18] MEDS ORDERED: FUROSEMIDE INJ 20 MG in SYRINGE 0 ML IV SCH (09:00)
[2017-09-18] MEDS ORDERED: POTASSIUM CHLORIDE 10 MEQ TABCR PO ONE (09:00)
[2017-09-18] MEDS ORDERED: LABETALOL HCL 200 MG TAB PO SCH (09:00)
[2017-09-18] MEDS: POTASSIUM CHLORIDE 10 MEQ TABCR PO SCH ×2 (10:01→20:40)
--- NOTE | 2017-09-18 13:16 | ECHOCARDIOGRAM REPORT ---
*NOTICE TO RECEIVING LIBERTARIAN AGENCY This information is strictly Confidential and protected under [place] law. [place] law prohibits you from making any further disclosure of this information unless further disclosure is expressly permitted by the written consent of the person to whom it pertains or is authorized by law. A general authorization for the release of medical or other information is not sufficient for this purpose. Hospital accepts no responsibility if the information is made available to any other person, INCLUDING THE PATIENT. Interpretation Summary * Name: CLARA LEO Study Date: 09/18/2017 11:26 AM BP: 145/94 mmHg * Patient Location: C.EDINP\S\EDINP 1\S\8 HR: 79 * : 1930 (M/d/yyy) Gender: Female Height: 62 in * Age: 86 yrs Ethnicity: CA Weight: 134 lb * Ordering Physician: Noah Cabrera * Referring Physician: Aleksandar Coker * Performed By: Marija Keith RDCS * * Reason For Study: CHF * BSA: 1.6 m2 * -- Conclusions -- * There is borderline concentric left ventricular hypertrophy. * Left ventricular systolic function is severely reduced. * Grade I diastolic dysfunction, (abnormal relaxation pattern). * There are regional wall motion abnormalities as specified. * The left atrium is mildly dilated. * There is mild to moderate mitral regurgitation. * Right ventricular systolic pressure is elevated at 30-40mmHg. Procedure Details * A contrast injection of Definity was performed to improve assessment of LV function. * Contrast was injected into an intravenous site in the right arm. * One vial of Definity ultrasound contrast was diluted in normal saline to a total volume of 10 ml. A total of '1' ml of solution was administered during imaging. * Lot # [id number] of Definity utilized for procedure. * Expiration date 1 SEP 08. * The attending nurse who injected the contrast agent was MARY KENT RN. Left Ventricle * The left ventricle is grossly normal size. * There is borderline concentric left ventricular hypertrophy. * Ejection Fraction = 15-20%. * Left ventricular systolic function is severely reduced. * Grade I diastolic dysfunction, (abnormal relaxation pattern). * There are regional wall motion abnormalities as specified. * There is severe global hypokinesis with akinesis of the distal inferior wall and dyskinesis of the interventricular septum. Right Ventricle * The right ventricle is normal in size and function. * The right ventricular systolic function is normal as assessed by tricuspid annular plane systolic excursion (TAPSE) (normal >1.5 cm). Atria * The left atrium is mildly dilated. * Right atrial size is normal. Mitral Valve * The mitral valve is grossly normal. * There is mild to moderate mitral regurgitation. * The mitral regurgitant jet is eccentrically directed. Tricuspid Valve * The tricuspid valve is not well visualized, but is grossly normal. * There is mild tricuspid regurgitation. * Right ventricular systolic pressure is elevated at 30-40mmHg. Aortic Valve * The aortic valve is normal in structure and function. * The aortic valve is trileaflet. * No significant aortic stenosis although the gradient may be underestimated due to the poor LV function * There is no significant aortic regurgitation. Great Vessels * The aortic root is normal size. Pericardium/Pleural * There is no pericardial effusion. Great Vessels * Normal inferior vena cava diameter and respiratory variation suggests normal central venous pressure. MMode 2D Measurements and Calculations IVSd 1.2 cm IVSs 1.4 cm LVIDd 4.2 cm LVIDs 3.7 cm LVPWd 1.3 cm LVPWs 2.1 cm IVS/LVPW 0.91 FS 11.2 % EDV(Teich) 78.3 ml ESV(Teich) 59.1 ml EF(Teich) 24.5 % EDV(cubed) 73.8 ml ESV(cubed) 51.7 ml EF(cubed) 29.9 % % IVS thick 12.2 % % LVPW thick 53.9 % LV mass(C)d 195.3 grams LV mass(C)dI 121.1 grams/m\S\2 LV mass(C)s 262.3 grams LV mass(C)sI 162.7 grams/m\S\2 SV(Teich) 19.2 ml SI(Teich) 11.9 ml/m\S\2 SV(cubed) 22.0 ml SI(cubed) 13.7 ml/m\S\2 Ao root diam 3.3 cm Ao root area 8.5 cm\S\2 LA dimension 4.4 cm LA/Ao 1.3 LVAd ap4 33.8 cm\S\2 LVLd ap4 9.1 cm EDV(MOD-sp4) 106.3 ml EDV(sp4-el) 106.9 ml LVAs ap4 29.2 cm\S\2 LVLs ap4 8.7 cm ESV(MOD-sp4) 82.7 ml ESV(sp4-el) 82.9 ml EF(MOD-sp4) 22.2 % EF(sp4-el) 22.5 % LVAd ap2 40.0 cm\S\2 LVLd ap2 10.0 cm EDV(MOD-sp2) 132.5 ml EDV(sp2-el) 135.8 ml LVAs ap2 32.8 cm\S\2 LVLs ap2 9.6 cm ESV(MOD-sp2) 93.0 ml ESV(sp2-el) 94.8 ml EF(MOD-sp2) 29.8 % EF(sp2-el) 30.2 % LVLd %diff 9.5 % EDV(MOD-bp) 124.8 ml LVLs %diff 9.4 % ESV(MOD-bp) 92.8 ml EF(MOD-bp) 25.7 % SV(MOD-sp4) 23.6 ml SI(MOD-sp4) 14.7 ml/m\S\2 SV(MOD-sp2) 39.5 ml SI(MOD-sp2) 24.5 ml/m\S\2 SV(MOD-bp) 32.1 ml SI(MOD-bp) 19.9 ml/m\S\2 SV(sp4-el) 24.0 ml SI(sp4-el) 14.9 ml/m\S\2 SV(sp2-el) 41.0 ml SI(sp2-el) 25.4 ml/m\S\2 Doppler Measurements and Calculations MV A max paula 96.6 cm/sec MV P1/2t max paula 88.9 cm/sec MV dec time 0.16 sec Ao V2 max 114.3 cm/sec Ao max PG 5.2 mmHg Ao max PG (full) 3.7 mmHg LV V1 max PG 1.5 mmHg LV V1 max 61.3 cm/sec TR max paula 274.4 cm/sec
--- NOTE | 2017-09-18 13:52 | Hospitalist Progress Note ---
Hospitalist Progress Note Date of Service Sep 18, 2017. Subjective Pt evaluation today including: conversation w/ patient, physical exam, lab review, review of studies, review of inpatient medication list Voiding: no voiding problems Patient sitting at bedside. Eating and drinking OK. Will make NPO incase cardiology intervention needed. Denies any chest pain. States she is feeling well and only complaint is progressive SOB since the holidays. Patient denies any fever, chills, sweats, lightheadedness, dizziness, vision changes, CP, palpitations, edema, wheezing, cough, abdominal pain, nausea, vomiting, diarrhea, urinary symptoms, melena, numbness/tingling, weakness, muscle/joint pain, anxiety/depression, active bleeding, or new skin discoloration/changes. Medications Current Inpatient Medications Medications (Trade) Dose Ordered Sig/Tae Route Start Time Stop Time Status Last Admin Dose Admin Ioversol (Optiray 320) 100 ml UD PRN IV 09/17/17 23:00 09/21/17 22:59 Furosemide 20 mg/ Syringe 2 ml @ 4 mls/min BID IV 09/18/17 09:00 10/18/17 08:59 09/18/17 10:01 4 MLS/MIN Acetaminophen (Tylenol Tab) 650 mg Q4H PRN PO 09/18/17 00:30 10/18/17 00:29 Al Hydrox/Mg Hydrox/Simethicone (Maalox Max Susp) 15 ml Q4H PRN PO 09/18/17 00:30 10/18/17 00:29 Magnesium Hydroxide (Milk Of Magnesia Susp) 30 ml Q12H PRN PO 09/18/17 00:30 10/18/17 00:29 Ondansetron HCl (Zofran Inj) 4 mg Q6H PRN IV 09/18/17 00:30 10/18/17 00:29 Polyethylene (Miralax Powder Packet) 17 gm DAILY PRN PO 09/18/17 00:30 10/18/17 00:29 Aspirin (Ecotrin Tab) 81 mg DAILY PO 09/18/17 09:00 10/18/17 08:59 09/18/17 10:01 81 MG Atorvastatin Calcium (Lipitor Tab) 40 mg DAILY PO 09/18/17 09:00 10/18/17 08:59 09/18/17 10:02 40 MG Folic Acid (Folvite Tab) 1 mg DAILY PO 09/18/17 09:00 10/18/17 08:59 09/18/17 10:01 1 MG Labetalol HCl (Normodyne Tab) 400 mg BID PO 09/18/17 09:00 10/18/17 08:59 09/18/17 10:02 400 MG Potassium Chloride (Klor-Con M10) 10 meq BID PO 09/18/17 09:00 10/18/17 08:59 09/18/17 10:01 10 MEQ Enoxaparin Sodium (Lovenox Inj) 60 mg Q12H SQ 09/18/17 06:00 10/18/17 05:59 09/18/17 06:20 60 MG Objective Vital Signs Date Time Temp Pulse Resp B/P (MAP) Pulse Ox O2 Delivery O2 Flow Rate FiO2 09/18/17 12:00 Room Air 09/18/17 08:00 Room Air 09/18/17 08:00 36.7 78 18 145/94 (111) 98 Room Air 09/18/17 06:31 36.3 83 20 143/87 98 Nasal Cannula 2.0 09/18/17 05:55 86 143/87 09/18/17 05:15 86 21 143/87 (105) 100 Nasal Cannula 2.0 09/18/17 04:20 75 09/18/17 03:08 133/99 09/18/17 03:06 103 25 98 Nasal Cannula 2.0 09/18/17 03:04 115 147/95 09/18/17 02:36 96 21 97 Nasal Cannula 2.0 09/18/17 02:06 80 62 96 Nasal Cannula 2.0 09/18/17 02:01 147/95 09/18/17 01:57 77 24 99 Nasal Cannula 2.0 09/18/17 01:52 138/75 09/18/17 00:59 151/95 09/18/17 00:36 98 19 95 Nasal Cannula 2.0 09/18/17 00:09 115 09/18/17 00:06 113 21 97 Nasal Cannula 2.0 09/18/17 00:01 156/108 09/17/17 23:40 94 Nasal Cannula 2.0 09/17/17 23:40 94 Nasal Cannula 2.0 09/17/17 23:39 118 20 153/102 88 Room Air 09/17/17 23:36 120 21 88 09/17/17 23:34 153/102 09/17/17 23:33 144/117 09/17/17 23:32 157/104 09/17/17 23:06 107 19 91 09/17/17 23:01 141/91 09/17/17 22:30 93 17 92 Room Air 09/17/17 22:01 147/103 09/17/17 21:30 99 20 95 Room Air 09/17/17 21:20 98 21 155/110 95 Room Air 09/17/17 20:59 99 09/17/17 20:49 96 Room Air 09/17/17 20:47 95 Room Air 09/17/17 20:45 96 15 165/111 96 Room Air 09/17/17 18:54 36.7 98 17 143/90 97 Room Air Physical Exam General Appearance: no apparent distress Eyes: normal inspection, PERRL ENT: hearing grossly normal Neck: supple, no JVD Respiratory/Chest: no respiratory distress, no accessory muscle use, + crackles (bilateral lung bases ) Cardiovascular: regular rate, rhythm Abdomen: normal bowel sounds, non tender, soft Extremities: no pedal edema, no calf tenderness Neurologic/Psychiatric: alert, normal mood/affect, oriented x 3 Skin: normal color, warm/dry, no rash Laboratory Results Last 24 Hours Test 09/17/17 21:10 09/17/17 21:20 09/17/17 23:55 09/18/17 03:59 White Blood Count 8.30 K/uL 8.32 K/uL Red Blood Count 3.91 M/uL 3.84 M/uL Hemoglobin 10.8 g/dL 10.8 g/dL Hematocrit 35.3 % 34.3 % Mean Corpuscular Volume 90.3 fL 89.3 fL Mean Corpuscular Hemoglobin 27.6 pg 28.1 pg Mean Corpuscular Hemoglobin Concent 30.6 g/dl 31.5 g/dl Platelet Count 279 K/uL 253 K/uL Mean Platelet Volume 8.8 fL 8.6 fL Neutrophils (%) (Auto) 61.2 % Lymphocytes (%) (Auto) 26.0 % Monocytes (%) (Auto) 7.8 % Eosinophils (%) (Auto) 4.6 % Basophils (%) (Auto) 0.2 % Neutrophils # (Auto) 5.07 K/uL Lymphocytes # (Auto) 2.16 K/uL Monocytes # (Auto) 0.65 K/uL Eosinophils # (Auto) 0.38 K/uL Basophils # (Auto) 0.02 K/uL RDW Standard Deviation 50.0 fL 49.1 fL RDW Coefficient of Variation 15.0 % 15.1 % Immature Granulocyte % (Auto) 0.2 % Immature Granulocyte # (Auto) 0.02 K/uL Prothrombin Time 10.5 SECONDS Prothromb Time International Ratio 1.0 Activated Partial Thromboplast Time 24.9 SECONDS Partial Thromboplastin Ratio 1.0 D-Dimer 640 ug/L FEU Sodium Level 140 mmol/L 138 mmol/L Potassium Level 4.0 mmol/L 3.4 mmol/L Chloride Level 108 mmol/L 105 mmol/L Carbon Dioxide Level 26 mmol/L 25 mmol/L Anion Gap 6.0 mmol/L 8.0 mmol/L Blood Urea Nitrogen 17 mg/dl 15 mg/dl Creatinine 0.82 mg/dl 0.81 mg/dl Est Creatinine Clear Calc Drug Dose 44.0 ml/min 44.5 ml/min Estimated GFR () 76.2 77.3 Estimated GFR (Non- 65.7 66.7 BUN/Creatinine Ratio 21.1 18.5 Random Glucose 94 mg/dl 101 mg/dl Calcium Level 8.9 mg/dl 8.4 mg/dl Total Bilirubin 2.3 mg/dl Aspartate Amino Transf (AST/SGOT) 38 U/L Alanine Aminotransferase (ALT/SGPT) 64 U/L Alkaline Phosphatase 103 U/L Troponin I 0.019 ng/ml 1.280 ng/ml Pro-B-Type Natriuretic Peptide 4752 pg/ml Total Protein 7.0 gm/dl Albumin 3.8 gm/dl Globulin 3.2 gm/dl Albumin/Globulin Ratio 1.2 Urine Color YELLOW Urine Appearance CLEAR Urine pH 5.0 Urine Specific [place] 1.013 Urine Protein NEG Urine Glucose (UA) NEG Urine Ketones NEG Urine Occult Blood NEG Urine Nitrite NEG Urine Bilirubin NEG Urine Urobilinogen NEG Urine Leukocyte Esterase SMALL Urine WBC (Auto) 1-5 /hpf Urine RBC (Auto) 0-4 /hpf Urine Hyaline Casts (Auto) 1-5 /lpf Urine Epithelial Cells (Auto) 5-10 /lpf Urine Bacteria (Auto) NEG Influenza Type A Antigen Neg for Influ A Influenza Type B Antigen Neg for Influ B Magnesium Level 1.9 mg/dl Iron Level 53 mcg/dl Total Iron Binding Capacity 413 mcg/dl Test 09/18/17 11:58 Troponin I 3.020 ng/ml Assessment and Plan 86 y/o F Hx HTN, aortic aneurysm, psoriasis, LBBB, hypothyroidism. Pt states that she has had a dry cough and exertional dyspnea for approximately 1 month. She states she has exceptional difficulty ascending stairs. She was provided with breathing treatments and a steroid taper which she completed but did not lead to sustained improvement. Her primary MD obtained a CXR earlier in the day and then instructed her to attend the hospital. Initial imaging is consistent with new onset of CHF, She denies CP, denies lower extremity edema, denies fevers. Progressive dyspnea likely secondary to new onset combined systolic/diastolic CHF, NSTEMI: - Admit to tele for cardiac monitoring - Trend cardiac enzymes- currently at 3.0 - EKG QAM and PRN for chest pain - ECHO w/ severely reduced EF, regional wall abnormalities, grade I diastolic dysfunction - CTA negative for PE - Influenza negative; UA negative - ?fluid overload- IV Lasix 20 mg BID - Monitor I&Os and daily weights - Continue BB, Lipitor, ASA - Lovenox 60 u SQ BID - Cardiology consulted, appreciate recommendations Hypokalemia: KCL 10 mEq BID, follow PRP and replace PRN HTN, HLD: - Labetalol 200 mg BID, ASA, Lipitor - Dyazide held, IV Lasix as above Hypothyroidism- TSH 3.6 07/2017: Continue Synthroid Aortic aneurysm- STABLE: - [address] - Continue outpatient f/u Anemia- baseline hgb 12.0- STABLE: - Iron panel reviewed - Follow CBC Psoriasis- STABLE: Continue Humira, Triamcinolone, Fluocinonide STABLE 6 mm pulmonary nodule on CT Code status: LEVEL I, FULL DVT prophylaxis: Lovenox SQ BID Dispo: Discharge uncertain at this time
[2017-09-18] MEDS ORDERED: FENTANYL CITRATE INJ 50 MCG/1 ML 2 ML VIAL ONE (15:06)
[2017-09-18] MEDS ORDERED: HEPARIN SOD (PORCINE) 1000 UNIT/ML 10 ML VIAL ONE (15:06)
[2017-09-18] MEDS ORDERED: MIDAZOLAM HCL 1 MG/ML 2ML VIAL ONE (15:06)
[2017-09-18] MEDS ORDERED: NITROGLYCERIN/D5W 100MCG/ML 20ML SYR ONE (15:08)
--- NOTE | 2017-09-18 17:10 | Pre Sedation Assessment ---
Pre Sedation Assessment General Date of Sedation: Sep 18, 2017. Vital Signs Past 12 Hours Date Time Temp Pulse Resp B/P (MAP) Pulse Ox O2 Delivery O2 Flow Rate FiO2 09/18/17 17:01 96 18 139/83 (101) 98 Room Air 09/18/17 16:48 36.6 87 18 144/88 (106) 94 Room Air 09/18/17 16:39 Room Air 09/18/17 16:35 36.8 91 20 154/89 (110) 98 Room Air 09/18/17 16:20 36.8 96 18 155/90 (111) 97 Room Air 09/18/17 16:00 98 16 147/88 (107) 98 Room Air 09/18/17 15:44 36.7 78 18 145/94 98 09/18/17 12:00 Room Air 09/18/17 08:00 Room Air 09/18/17 08:00 36.7 78 18 145/94 (111) 98 Room Air 09/18/17 06:31 36.3 83 20 143/87 98 Nasal Cannula 2.0 09/18/17 05:55 86 143/87 09/18/17 05:15 86 21 143/87 (105) 100 Nasal Cannula 2.0 Review Cardiovascular: regular rate, rhythm, no edema Lungs: chest non-tender, lungs clear Pre-Sedation Airway Assessment Smoking Status: Unknown if Ever Smoked Hx of Sleep Apnea: No Hx of difficult intubation: No Short Thick Neck: No Thyro-mental Distance: > 3 Finger Breadths Oral Cavity: WNL Mallampati Classification: Class II ASA Classification: Class IV NPO Status Date of Last Intake of Fluids: Sep 18, 2017 Time of Last Intake of Fluids: 1200 Date of Last Intake of Solids: Sep 18, 2017 Time of Last Intake of Solids: 0800 Procedure Planning Contraindications for Sedation: None Current Medications Reviewed: Yes Notes The planned sedation has been discussed with the patient. Informed Consent was obtained. I have identified the patient, determined the appropriateness of sedation and have assessed the patient immediately prior to the procedure. All medicine(s) and interventions are by my order.
--- NOTE | 2017-09-18 17:11 | Post Sedation Assessment ---
Post Sedation Assessment General Date of Sedation Sep 18, 2017. Vital Signs: Vital Signs Past 12 Hours Date Time Temp Pulse Resp B/P (MAP) Pulse Ox O2 Delivery O2 Flow Rate FiO2 09/18/17 17:01 96 18 139/83 (101) 98 Room Air 09/18/17 16:48 36.6 87 18 144/88 (106) 94 Room Air 09/18/17 16:39 Room Air 09/18/17 16:35 36.8 91 20 154/89 (110) 98 Room Air 09/18/17 16:20 36.8 96 18 155/90 (111) 97 Room Air 09/18/17 16:00 98 16 147/88 (107) 98 Room Air 09/18/17 15:44 36.7 78 18 145/94 98 09/18/17 12:00 Room Air 09/18/17 08:00 Room Air 09/18/17 08:00 36.7 78 18 145/94 (111) 98 Room Air 09/18/17 06:31 36.3 83 20 143/87 98 Nasal Cannula 2.0 09/18/17 05:55 86 143/87 09/18/17 05:15 86 21 143/87 (105) 100 Nasal Cannula 2.0 Post Procedure Recovery Score Activity: (2) Moves 4 extremities * Respiration: (2) Deep breath/cough Circulation: (2) +/-20% PreAnes Value Consciousness: (2) Fully Awake Oxygen Saturation: (2) > 92% On Room Air Post Anesthesia Score: 10 Discharge Sedation Level of Care: Fast Track Phase II Post Sedation Plan On clinical assessment, the patient appears to have tolerated the sedation without complications. Patient is recovering as anticipated. Patient will continue to be monitored by nursing and may be discharged when sedation discharge criteria are met per below protocol. Upon Completions of procedure and additional 15 minutes continue every 5 minute vital signs and the P.A.R. score; then discharge to a Phase I or Fast Track to Phase II per the following guidelines: * Discharge Patient to appropriate Phase II area if PAR is 8 or greater or return to pre- procedure baseline. The post - procedure orders will be as directed. * If PAR score is less than 8 or not return to pre-procedure baseline then patient will follow Phase I monitoring till PAR is reached for Phase II. The Phase I may be done in procedure room or may call to secure a Phase I area. * If naloxone or flumazenil are used for reversal, hold in Phase I for an additional 60 -120 minutes before discharge to Phase II. Please call the Sedation Physician to re-evaluate and complete post-note for discharge to Phase II area. Do NOT discharge from procedure sedation or Phase 1 until post- sedation evaluation note is complete by procedure /sedation MD Sedation Discharge Instructions to be given to the patient at discharge to home.
--- NOTE | 2017-09-18 17:33 | Cardiac Catheterization ---
Procedure Note Procedure Date Sep 18, 2017. Pre-Procedure Diagnosis Acute Coronary Syndrome, Cardiomyopathy AUC Score 8 Post-Procedure Diagnosis Severe CAD, Normal Intracardiac Pressures Procedure(s) Performed Coronary Angiography, Left Heart Cath Supervisor Stitching Department Corbin Harness Tier(s) Devaughn Estimated Blood Loss 15 Medication(s) Fentanyl, Heparin, Nitroglycerin, Versed, Lidocaine 1% Summary of Findings Indication: High-risk NSTEMI/Severe cardiomyopathy Access: 6Fr right radial artery Catheters: [place], JL5, JR4 Findings: LM - 80% distal LM LAD - Calcified, 50% proximal, 80-90% focal mid; luminal irregularities as wraps around apex. High 1st diagonal small with 60% ostial stenosis and diffuse disease. Circumflex - Small to moderate caliber vessel with luminal irregularities. Ramus - 60-70% ostial stenosis followed by diffuse disease. RCA - Dominant, 70% mid segment disease, mild distal disease. LVEDP - 15 Arterial Closure: TR Band Summary: 1. Severe multivessel and left main coronary artery disease - LM 80% distal - LAD 80-90% mid - RCA 70% mid 2. Normal intracardiac filling pressure Recommendations: With new severe LV dysfunction recommend transfer to tertiary center for evaluation for CABG. In interim - Anticoagulation with heparin. Continue ASA Beta-javon, KEIRY. Nitrates as needed. Hemodynamics Rest Ao: 144/73/100 Final Ao: 156/81/115 LV: 142/15 Recommendations CABG Specimens None Radiation Exposure (mGy) 734 Contrast (mls) 70 Fluids (cc crystalloids) 20 Drains None Anesthesia Moderate Procedural Complication(s) None Disposition ICU ACC Data Cardiac Status Clinical evaluation leading to the procedure Anginal Classification: CCS II Heart Failure: NYHA Class: CCS IV Cardiogenic Shock w/in 24Hrs: No Imaging studies past 6 months: Yes Stress studies past 6 months: No Closure Device Percutaneous Entry Location: Radial Closure Device: Mynx Recommendations: CABG Intraprocedure Events Significant Dissection: No Perforation: No
[2017-09-18] MEDS ORDERED: LVNIS60 SQ (17:45)
[2017-09-18] MEDS ORDERED: NITROGLYCERIN/D5W 100 MCG/ML 250 ML IV SCH (17:45)
--- NOTE | 2017-09-18 17:46 | Discharge Instructions ---
Discharge Instructions Date of Service Sep 18, 2017. Admission Reason for Admission: CHF Discharge Discharge Diagnosis / Problem: Acute non-STEMI and severe multiple vessel coronary artery disease Discharge Goals Goal(s): Decrease discomfort, Improve function, Increase independence, Improve disease control, Improve nutritional status, Learn about illness, Diagnostic testing, Therapeutic intervention, Prevent Disease Progression, Specific goals Activity Recommendations Activity Limitations: as noted below . Instructions / Follow-Up Instructions / Follow-Up You have heart attack and has severe multiple vessel disease, Was transferred you to [facility] for further evaluation and treatment per recommendation from local telehealth nurse Please follow-up with your primary care physician and local cardiology after discharge from [facility] Call PCP if you have any questions Current Hospital Diet Patient's current hospital diet: AHA Diet (Heart Healthy) Discharge Diet Recommended Diet: AHA Diet (Heart Healthy) Pending Studies Studies pending at discharge: no Laboratory Results Lipid Panel Test 07/30/17 11:31 Range/Units Triglycerides Level 83 0-150 mg/dl Cholesterol Level 155 0-200 mg/dl HDL Cholesterol 64 mg/dl Cholesterol/HDL Ratio 2.4 LDL Cholesterol, Calculated 74 mg/dl Medical Emergencies . Who to Call and When: Medical Emergencies: If at any time you feel your situation is an emergency, please call 911 immediately. . Non-Emergent Contact Non-Emergency issues call your: Primary Care Provider, Mechanical Service Specialist . . "Provider Documentation" section prepared by Christian Arellano. .
--- NOTE | 2017-09-18 17:59 | Discharge Summary ---
Discharge Summary Date of Service Sep 18, 2017. Discharge Summary Admission Date: Sep 18, 2017 at 00:55 Discharge Date: Sep 18, 2017 Discharge Disposition: Acute care [facility] Principal Diagnosis: Non-STEMI, Problems/Secondary Diagnoses: Severe multiple coronary artery disease, cardiomyopathy Procedures: Cardiac cath Consultations: Tassel Snipper Medication Reconciliation New Medications: Enoxaparin (Enoxaparin Sodium) 60 Mg/0.6 Ml Inj 60 MG SQ Q12H for 3 Days This is a medicine reconciliation Continued Medications: Adalimumab (Humira Pen) 40 Mg/0.8 Ml Kit 40 MG INJ EVERY OTHER WEEK Aspirin (Aspirin Low Dose) 81 Mg Tab 1 TAB PO DAILY Atorvastatin (Lipitor) 40 Mg Tab 40 MG PO DAILY, TAB Budesonide/Formoterol Fumarate (Symbicort 80/4.5 Inhaler) Aero 2 PUFFS INH BID, INHALER Cholecalciferol (Vitamin D3) 2,000 Unit Tab 1 TAB PO BID, TAB 3 Refills Desonide 0.05% (Desowen 0.05%) 60 Gm Cr 1 APPLN TOP BID, #60 GM Fluocinolone Acetonide (Parrott-Smoothe/Fs Scalp) 0.01 % Oil 1 APPLN APPLY TO SCALP AND LEAVE ON OVERNIGHT DIRECTED Fluocinonide (Fluocinonide) 0.05 % Steffi 1 APPLN TOP BID, #60 ML 3 Refills Folic Acid (Folvite) 1 Mg Tab 1 MG PO DAILY, TAB Labetalol (Normodyne) 200 Mg Tab 2 TABS PO BID, TAB Levothyroxine Sodium (Levothyroxine Sodium) 100 Mcg Tab 0.5 TAB PO WK, 1 Refill Levothyroxine Sodium (Levothyroxine Sodium) 100 Mcg Tab 1 TAB PO 6XWK for 90 Days, TAB 3 Refills Triamcinolone Acet (Triamcinolone Acetonide) 240 Appln/80 Gm Oint 1 APPLN TOP BID APPLY AND GENTLY MASSAGE INTO AFFECTED AREAs Discontinued Medications: Triamterene/Hctz (Dyazide 37.5MG/25MG) Cap 1 CAP PO DAILY PRN for PRN for 90 Days, #90 CAP 3 Refills Discharge Exam After cardiac cath no complaint, doing well Review of Systems: Constitutional: No fever, No chills, No sweats, No weight loss, No weakness , No fatigue, No problem reported Eyes: No worsening of vision, No eye pain, No redness, No discharge, No diplopia, No problem reported ENT: No hearing loss, No unusual epistaxis, No nasal symptoms, No sore throat, No tinnitus, No dental problems, No trouble swallowing, No problem reported Respiratory: + cough, No sputum, No wheezing, No shortness of breath, No dyspnea on exertion, No dyspnea at rest, No hemoptysis, No problem reported Cardiovascular: No chest pain, No orthopnea, No PND, No edema, No claudication, No palpitations, No problem reported Abdomen: No pain, No nausea, No vomiting, No diarrhea, No constipation, No GI bleeding, No problem reported Musculoskeletal: No joint pain, No muscle pain, No swelling, No calf pain, No problem reported Genitourinary - Female: No dysuria, No urinary frequency, No urinary urgency , No urinary incontinence, No urinary retention, No hematuria, No dysmenorrhea, No menorrhagia, No metrorrhagia, No rash, No vaginal bleeding, No vaginal discharge, No vaginal itching, No vulvodynia, No , No problem reported Neurologic: No memory loss, No paralysis, No weakness, No numbness/tingling , No vertigo, No balance problems, No problem reported Endocrine: No fatigue, No excessive thirst, No excessive urination, No problem reported Hematologic / Lymphatic: No abnormal bleeding/bruising, No clotting problems , No swollen lymph nodes, No night sweats, No problem reported Integumentary: No rash, No itch, No new/changing skin lesions, No color change, No bleeding, No problem reported Physical Exam: General Appearance: WD/WN, no apparent distress Eyes: normal inspection, PERRL ENT: normal ENT inspection, hearing grossly normal, TMs normal Neck: supple, no adenopathy, thyroid normal Respiratory/Chest: chest non-tender, + decreased breath sounds, + wheezing ( Occasional) Cardiovascular: regular rate, rhythm, no edema, no gallop, no JVD, no murmur Abdomen / GI: normal bowel sounds, non tender, soft, no organomegaly, no pulsatile mass Extremities: normal inspection, no calf tenderness, normal capillary refill , no pedal edema, + pertinent finding (joce radial pulses and hands : no bleeding, color is normal, cap Refill is normal, temperature is warm) Neurologic/Psychiatric: rat exterminator II-XII nml as tested, no motor/sensory deficits , alert, normal mood/affect, normal reflexes, oriented x 3 Skin: normal color, warm/dry Hospital Course 86 y/o F Hx HTN, aortic aneurysm, psoriasis, LBBB, hypothyroidism. Pt states that she has had a dry cough and exertional dyspnea for approximately 1 month. She states she has exceptional difficulty ascending stairs. She was provided with breathing treatments and a steroid taper which she completed but did not lead to sustained improvement. Her primary MD obtained a CXR earlier in the day and then instructed her to attend the hospital. Initial imaging is consistent with new onset of CHF, She denies CP, denies lower extremity edema, denies fevers. Progressive dyspnea likely secondary to new onset combined systolic/diastolic CHF, NSTEMI: - Admit to tele for cardiac monitoring - Trend cardiac enzymes- currently at 3.0 - EKG QAM and PRN for chest pain - ECHO w/ severely reduced EF, regional wall abnormalities, grade I diastolic dysfunction - CTA negative for PE - Influenza negative; UA negative - ?fluid overload- IV Lasix 20 mg BID - Monitor I&Os and daily weights - Continue BB, Lipitor, ASA - Lovenox 60 u SQ BID - Cardiology consulted, appreciate recommendations Hypokalemia: KCL 10 mEq BID, follow PRP and replace PRN HTN, HLD: - Labetalol 200 mg BID, ASA, Lipitor - Dyazide held, IV Lasix as above Hypothyroidism- TSH 3.6 07/2017: Continue Synthroid Aortic aneurysm- STABLE: - [address] - Continue outpatient f/u Anemia- baseline hgb 12.0- STABLE: - Iron panel reviewed - Follow CBC Psoriasis- STABLE: Continue Humira, Triamcinolone, Fluocinonide STABLE 6 mm pulmonary nodule on CT Code status: LEVEL I, FULL DVT prophylaxis: Lovenox SQ BID Dispo: Discharge uncertain at this time Note: cardiology did a cardiac cath which shows acute CA and severe multiple vessel disease associated with cardiomyopathy, cardiology recommended transfer to tertiary Medical Center, cardiology has talked to [facility] cardiology has already accepting physician is Dr. Bocanegra, patient will be transferred when bed available, with the present orders, discussed the risk and benefit of transferring, patient understand and consent signed, Hx HTN, aortic aneurysm, psoriasis, LBBB, hypothyroidism. Have advised her to follow-up with PCP after discharge from [facility] Total Time Spent: Greater than 30 minutes This includes examination of the patient, discharge planning, medication reconciliation, and communication with other providers. Discharge Instructions Please refer to the electronic Patient Visit Report (Discharge Instructions) for additional information. Additional Copies To Misael Alaniz MD; Aleksandar Coker M.D.
[2017-09-18] MEDS ORDERED: HEPARIN 25,000 UNIT/500ML D5W 500 ML IV PRN (18:30)
[2017-09-18] MEDS ORDERED: CARVEDILOL 6.25 MG TAB PO SCH (21:00)
[2017-09-18] MEDS ORDERED: CAPTOPRIL 12.5 MG TAB PO SCH (21:00)
--- NOTE | 2017-09-19 00:40 | CARDIOLOGY CONSULTATION ---
DATE OF CONSULTATION: 09/18/2017 CARDIOLOGY CONSULTATION CONSULTATION REQUESTED BY: Dr. Arellano. REASON FOR CONSULTATION: Heart failure, elevated troponin. HISTORY OF PRESENT ILLNESS: Mrs. Ortega is a very pleasant 86-year-old woman with a history of remote chronic type B dissection, ascending aortic aneurysm, last measured 4.6 cm in diameter who is followed by me in the outpatient setting and presented with worsening shortness of breath, yesterday. The patient found to have new heart failure with a rising troponin and cardiology was consulted. The patient states that she has been increasingly short of breath over the last 2 months. Initially, noted just with exertion, stating unable to make it up the stairs in her home without having to stop. He has also noted though has become more short of breath at night and has been sleeping in her reclining chair more recently. Denies any lower extremity swelling. Denies any chest pain at any time. Denies any palpitations. Has been seen by her PCP multiple times over this time with complaints of cough, which has not responded to antibiotics and other therapies. In the ED, the patient initially hypertensive with systolic blood pressures up in the 150s, was satting fine on room air. Chest x-ray showed pulmonary edema and a CT scan was negative for PE. On PE, gated CT scan thoracic ascending aorta dilated up to 5.0. Initial troponin was negative, but subsequent troponins went to 1.28 and 3.0 this afternoon. Again, patient remained chest pain free. EKG showed chronic old left bundle branch block. The patient underwent echocardiogram this afternoon, which showed new severe global LV dysfunction with an EF of 15-20%, mild to moderate MR with trace aortic regurgitation. As a result of a new LV dysfunction and elevated troponin, the patient underwent a cardiac catheterization. Cardiac catheterization showed severe distal left main disease, 70-80% as well as 80-90% mid LAD stenosis and 70% mid RCA stenosis. LVEDP was 15. Due to severe left main disease, rising troponin and new LV dysfunction, decision was made to contact tertiary center for evaluation for bypass surgery. PAST MEDICAL HISTORY: 1. Thoracic aortic aneurysm, last 4.[address] scan 07/09/2017. 2. History of type B descending thoracic aortic dissection in 2002, managed conservatively at [facility]. 3. Hypertension. 4. Dyslipidemia. 5. Chronic left bundle branch block. 6. Plaque psoriasis. 7. Hypothyroidism. FAMILY HISTORY: History of rheumatoid arthritis. No premature coronary artery disease or sudden cardiac . SOCIAL HISTORY: Negative for tobacco, alcohol or drug use. MEDICATIONS AT HOME: Include aspirin 81, atorvastatin 40, labetalol 400 mg b.i.d., triamterene/hydrochlorothiazide 37.5/25, levothyroxine, triamcinolone, and folic acid. ALLERGIES: No known drug allergies. REPORTED ALLERGIES TO INFLUENZA VACCINE, PNEUMOVAX AND TETANUS TOXOID. PHYSICAL EXAMINATION: VITAL SIGNS: Temperature 36.6, pulse 87, blood pressure 144/88, satting 94% on room air. GENERAL: The patient appeared comfortable in no acute distress. HEENT: Sclerae are anicteric. Oropharynx is clear. NECK: Supple. She has no jugular venous distention. LUNGS: Clear to auscultation bilaterally. HEART: Regular rate and rhythm with a 2/6 holosystolic murmur at the apex. ABDOMEN: Soft, nontender, nondistended. EXTREMITIES: Warm. She had no edema. She had intact distal pulses including 2+ radial pulses bilaterally. SKIN: Showed no rashes or lesions. NEUROLOGIC: Nonfocal. DATA: Cardiac testing is viewed in HPI. PERTINENT LABORATORY DATA: Hemoglobin of 10.8, platelets of 253. D-dimer of 640. Troponins as discussed above. ProBNP of 4752. IMPRESSION AND PLAN: 1. Severe multivessel coronary artery disease including left main disease. 2. Ischemic cardiomyopathy/acute systolic heart failure. 3. Ascending aortic aneurysm at 5.0 cm on current PE protocol CT. 4. Hypertension. 5. Dyslipidemia. Mrs. Ortega is here with new acute systolic heart failure. She has received 2 doses of Lasix and at present appears well compensated without significant congestion on exam. She was found to have a new severe coronary artery disease. In the setting of her LV dysfunction, I feel that will be best served by evaluation by cardiac surgery for potential bypass surgery. Discussed case with Dr. Bocanegra at [facility] and he is willing to accept patient. At present, awaiting a bed at [facility]. In the interim, will plan to start on heparin infusion and continue aspirin and high intensity statin. We will transition beta javon to carvedilol and start on KEIRY inhibitor. We will also keep on nitro infusion with target systolic blood pressure less than 130. For now, will hold off on additional diuretics and the reassess in the morning. We will plan to start on spironolactone. Cardiology to continue to follow while awaiting transfer. Please contact if you have any questions. Thank you for this consultation.
[2017-09-19] MEDS ORDERED: SPIRONOLACTONE 25 MG TAB PO SCH (09:00)
[2017-09-19] MEDS ORDERED: ATORVASTATIN 40 MG TAB PO SCH (09:00)
== END 2017-09-18 22:10 | disposition short-term general hospital (02) | DRG 280 ==
LOC: C.EDB 18:45 → C.EDINP 09-18 00:55 → ENRESERV 09-18 12:48 → C.2T 09-18 16:18 → ENRESERV 09-18 17:15 → C.MSICU 09-18 18:19
PROVIDERS: ADMIT Internal Medicine; ATTEND Hospitalist
PROC: B211YZZ Fluoroscopy of Multiple Coronary Arteries using Other Contrast (ICD-10-PCS; principal; 2017-09-18 15:26)
PROC: 4A023N7 Measurement of Cardiac Sampling and Pressure, Left Heart, Percutaneous Approach (ICD-10-PCS; principal; 2017-09-18 15:26)
DX: I21.4 Non-ST elevation (NSTEMI) myocardial infarction (principal); I50.41 Acute combined systolic (congestive) and diastolic (congestive) heart failure; I11.0 Hypertensive heart disease with heart failure; I25.10 Atherosclerotic heart disease of native coronary artery without angina pectoris; I25.5 Ischemic cardiomyopathy; E87.6 Hypokalemia; E78.5 Hyperlipidemia, unspecified; E03.9 Hypothyroidism, unspecified; I71.2 Thoracic aortic aneurysm, without rupture; D64.9 Anemia, unspecified; L40.0 Psoriasis vulgaris; I44.7 Left bundle-branch block, unspecified; R91.1 Solitary pulmonary nodule; Z79.82 Long term (current) use of aspirin; Z79.899 Other long term (current) drug therapy; Z88.7 Allergy status to serum and vaccine; Z82.49 Family history of ischemic heart disease and other diseases of the circulatory system; Z82.3 Family history of stroke; Z82.61 Family history of arthritis

== ENCOUNTER → 2017-10-13 | Outpatient (CLI) | payer BC ==
[~2017-10-13] MED LIST changes: +ADAL40KI INJ; -ASPEC81 PO; +ASPI1TAB48 PO; +ATOR-24 PO; +CHOL20007 PO; +DSWCR TOP; -DYZ PO; -EYE DROPS; +FLUO0.0121; +FLUO0.0566 TOP; +FOLI1TAB8 PO; +LABE1TAB28 PO; +LEVO100T7 PO; +LVNIS60 SQ; +SYMIN/8045 INH; -SYN50 PO; +TRIA37.5 PO; +TRMO180 TOP
[2017-10-13 17:40] LABS: INR 2.2 (0.9-1.1)
== END | disposition home or self-care (01) ==
LOC: C.LAB1850 15:55
PROVIDERS: ATTEND Internal Medicine Critical Care Medicine
DX: I48.91 Unspecified atrial fibrillation (principal)

== ENCOUNTER → 2017-10-16 | Outpatient (CLI) | payer BC ==
[2017-10-16 13:23] LABS: INR 2.5 (0.9-1.1)
== END | disposition home or self-care (01) ==
LOC: C.LAB1850 10:11
PROVIDERS: ATTEND Physician Assistant
DX: I70.0 Atherosclerosis of aorta (principal)

== ENCOUNTER → 2017-11-04 | Outpatient (CLI) | payer BC ==
[2017-11-04 12:30] LABS: INR 1.5 (0.9-1.1)
[2017-11-04 12:33] LABS: BASO % 0.9 %; BASO ABS # 0.07 K/uL (0-0.2); EOS % 6.1 %; EOS ABS # 0.49 K/uL (0-0.5); HEMATOCRIT 39.5 % (37-47); HEMOGLOBIN 12.8 g/dL (12.0-16.0); IG# 0.01 K/uL (0.00-0.02); LYMPH % 31.4 %; LYMPH ABS # 2.53 K/uL (1.2-3.4); MEAN CELL VOLUME 90.8 fL (80-100); MEAN CORPUSCULAR HEMOGLOBIN 29.4 pg (25-34); MEAN CORPUSCULAR HGB CONC 32.4 g/dl (32-36); MONO % 10.2 %; MONO ABS # 0.82 K/uL (0.11-0.59); NEUT % 51.3 %; NEUT ABS # 4.13 K/uL (1.4-6.5); PLATELET COUNT 321 K/uL (130-400); RED CELL DISTRIBUTION WIDTH CV 14.9 % (11.5-14.5); RED CELL DISTRIBUTION WIDTH SD 50.4 fL (36.4-46.3); WHITE BLOOD COUNT 8.05 K/uL (4.8-10.8)
[2017-11-04 12:46] LABS: BLOOD UREA NITROGEN 17 mg/dl (7-18); CALCIUM 9.5 mg/dl (8.5-10.1); CARBON DIOXIDE 29 mmol/L (21-32); CREATININE 0.78 mg/dl (0.60-1.20); GLUCOSE 98 mg/dl (70-99); POTASSIUM 3.6 mmol/L (3.5-5.1); SODIUM 141 mmol/L (136-145)
== END | disposition home or self-care (01) ==
LOC: C.LAB1850 11:02
PROVIDERS: ATTEND Internal Medicine
DX: I70.0 Atherosclerosis of aorta (principal); E83.42 Hypomagnesemia; I10 Essential (primary) hypertension

== ENCOUNTER → 2017-11-07 | Outpatient (CLI) | payer BC ==
[2017-11-07 17:53] LABS: INR 1.6 (0.9-1.1)
== END | disposition home or self-care (01) ==
LOC: C.LAB1850 17:20
PROVIDERS: ATTEND Internal Medicine
DX: I70.0 Atherosclerosis of aorta (principal); I65.29 Occlusion and stenosis of unspecified carotid artery

== ENCOUNTER → 2017-11-13 | Outpatient (CLI) | payer BC ==
[~2017-11-13] MED LIST changes: +CARV6.252 PO; +CHOL200010 PO; +FURO-85 PO; +POTA10CA28 PO; +WARF5TAB7 PO
[2017-11-13 15:51] LABS: INR 2.3 (0.9-1.1)
== END | disposition home or self-care (01) ==
LOC: C.LAB1850 14:44
PROVIDERS: ATTEND Internal Medicine
DX: I70.0 Atherosclerosis of aorta (principal); I77.810 Thoracic aortic ectasia

== ENCOUNTER → 2017-11-20 | Outpatient (CLI) | payer BC ==
[~2017-11-20] MED LIST changes: -ADAL40KI INJ; -DSWCR TOP; -FLUO0.0121; -FLUO0.0566 TOP; -LABE1TAB28 PO; -LVNIS60 SQ; -SYMIN/8045 INH; -TRIA37.5 PO; -TRMO180 TOP
[2017-11-20 14:56] LABS: INR 1.7 (0.9-1.1)
== END | disposition home or self-care (01) ==
LOC: C.LAB1850 12:46
PROVIDERS: ATTEND Internal Medicine
DX: Z86.79 Personal history of other diseases of the circulatory system (principal)

== ENCOUNTER → 2017-11-26 | Outpatient (CLI) | payer BC ==
[2017-11-26 13:08] LABS: INR 2.2 (0.9-1.1)
== END | disposition home or self-care (01) ==
LOC: C.LAB1850 12:01
PROVIDERS: ATTEND Internal Medicine
DX: I70.0 Atherosclerosis of aorta (principal); I77.810 Thoracic aortic ectasia

== ENCOUNTER → 2018-03-11 | Outpatient (CLI) | payer BC ==
[2018-03-11 12:49] LABS: BLOOD UREA NITROGEN 16 mg/dl (7-18); CALCIUM 9.2 mg/dl (8.5-10.1); CARBON DIOXIDE 27 mmol/L (21-32); CREATININE 0.82 mg/dl (0.60-1.20); GLUCOSE 94 mg/dl (70-99); POTASSIUM 3.7 mmol/L (3.5-5.1); SODIUM 140 mmol/L (136-145)
== END | disposition home or self-care (01) ==
LOC: C.LAB1850 10:23
PROVIDERS: ATTEND Internal Medicine
DX: E03.9 Hypothyroidism, unspecified (principal); I10 Essential (primary) hypertension; E83.42 Hypomagnesemia